=== PATIENT | female | born 1935 | race African-American/Black ===

== ENCOUNTER 2023-01-25 07:08 | Inpatient (IN) | payer MEDICARE, OTHER ==
[~2023-01-25] VITALS: Ht 152.4 cm; Wt 70.3 kg
[2023-01-25 07:58] LABS: CALCIUM, SERUM 9.3 mg/dL (8.5-10.1); CARBON DIOXIDE 26 mmol/L (21-32); CHLORIDE 103 mmol/L (98-107); CREATININE 1.8 mg/dL (0.6-1.3); GLUCOSE 103 mg/dL (74-106); POTASSIUM 3.4 mmol/L (3.5-5.1); SODIUM SERUM 140 mmol/L (136-145); UREA NITROGEN, BLOOD 29 mg/dL (7-18)
[2023-01-25 08:08] LABS: LACTIC ACID 1.4 mmol/L (0.4-2.0)
[2023-01-25 08:09] LABS: BASOPHILS % (AUTO) 0.2 % (0.0-2.0); EOSINOPHILS # (AUTO) 0.1 K/uL (0.0-0.7); EOSINOPHILS % (AUTO) 0.8 % (0.0-6.0); HEMATOCRIT 34 % (33-45); HEMOGLOBIN 10.8 g/dL (11.5-14.8); LYMPHOCYTES # (AUTO) 1.2 K/uL (0.8-4.8); LYMPHOCYTES % (AUTO) 15.7 % (20.0-44.0); MEAN CORPUSCULAR HEMOGLOBIN 29 PG (26.0-33.0); MEAN CORPUSCULAR HGB CONC 32 g/dl (31.0-36.0); MEAN CORPUSCULAR VOLUME 92 fL (82-100); MONOCYTES % (AUTO) 13.2 % (2.0-12.0); NEUTROPHILS # (AUTO) 5.4 K/uL (1.8-8.9); NEUTROPHILS % (AUTO) 70.1 % (43.0-81.0); PLATELET COUNT (AUTO) 193 K/uL (150-450); RED BLOOD CELL COUNT(AUTO) 3.71 MIL/uL (4.0-5.2); RED CELL DISTRIBUTION WIDTH 15.4 % (11.5-15.0); WHITE BLOOD COUNT (AUTO) 7.7 K/uL (4.3-11.0)
[2023-01-25 08:11] LABS: ALANINE AMINOTRANSFERASE 16 U/L (12-78); ALBUMIN 3.2 g/dL (3.4-5.0); ALKALINE PHOSPHATASE 80 U/L (46-116); ASPARTATE AMINOTRANSFERASE 20 U/L (15-37); BILIRUBIN,DIRECT 0.1 mg/dL (0.0-0.2); BILIRUBIN,TOTAL 0.5 mg/dL (0.2-1.0); NT-PRO BNP 1843 pg/mL (0-125); TOTAL PROTEIN, SERUM 7.6 g/dL (6.4-8.2)
[2023-01-25 08:11] LABS: APPEARANCE,URINE CLEAR (CLEAR); BILIRUBIN,URINE NEGATIVE (NEGATIVE); BLOOD, URINE TRACE-INTA Ery/uL (NEGATIVE); COLOR,URINE YELLOW (YELLOW); KETONES,URINE TRACE mg/dL (NEGATIVE); LEUKOCYTE ESTERASE ,URINE NEGATIVE (NEGATIVE); NITRITE, URINE NEGATIVE (NEGATIVE); PROTEIN,URINE 2+ mg/dl (NEGATIVE); UGLUCOSE NEGATIVE (NEGATIVE); UROBILINOGEN,URINE 0.2 EU/dL (0.2)
[2023-01-25 08:24] LABS: RBC,URINE 0-2 /HPF (0-2)
[2023-01-25 08:25] LABS: ADD URINE CULTURE YES; BACTERIA,URINE Moderate /HPF (None Seen); COARSE GRANULAR CASTS,URINE Few /LPF (None Seen); SQUAMOUS EPITHELIAL CELL,UR Moderate /HPF (None Seen); WBC,URINE NONE SEEN /HPF (0-3)
[2023-01-25] MEDS ORDERED: FUROSEMIDE 40 MG/4 ML VIAL IV ONE (08:30)
[2023-01-25] MEDS ORDERED: FUROSEMIDE 40 MG/4 ML VIAL ONE (08:50)
[2023-01-25] MEDS ORDERED: ACET-2605 PO (09:20)
[2023-01-25] MEDS ORDERED: METO25TA4 PO (09:20)
[2023-01-25] MEDS ORDERED: ASCO-352 PO (09:20)
[2023-01-25] MEDS ORDERED: AMLO2.5T4 PO (09:20)
[2023-01-25] MEDS ORDERED: MELA3TAB41 PO (09:20)
[2023-01-25] MEDS ORDERED: ACET-868 PO ×2 (09:20)
[2023-01-25] MEDS ORDERED: PETR113O TP (09:20)
[2023-01-25] MEDS ORDERED: RIVA3CAP17 PO (09:20)
[2023-01-25] MEDS ORDERED: ZINC56.713 TP (09:20)
[2023-01-25] MEDS ORDERED: MULT-447 PO (09:20)
[2023-01-25] MEDS ORDERED: POTA10TA11 PO (09:20)
[2023-01-25] MEDS ORDERED: FURO40TA5 PO (09:20)
[2023-01-25] MEDS ORDERED: CLOP75TA15 PO (09:20)
[2023-01-25] MEDS ORDERED: METF-440 PO (09:20)
[2023-01-25] MEDS ORDERED: MEMA10TA56 PO (09:20)
[2023-01-25] MEDS ORDERED: ATOR40TA PO (09:20)
[2023-01-25] MEDS ORDERED: FOLI0.4T6 PO (09:20)
[2023-01-25] MEDS ORDERED: Z GUARD REMEDY 4 OZ OINT TP PRN (14:30)
[2023-01-25] MEDS ORDERED: ONDANSETRON HCL/PF 4 MG/2 ML VIAL IVP PRN (14:30)
[2023-01-25] MEDS ORDERED: POTASSIUM CHLORIDE 20 MEQ TAB.PRT.SR PO ONE (14:30)
[2023-01-25] MEDS ORDERED: ACETAMINOPHEN 325 MG TABLET PO PRN (14:30)
[2023-01-25] MEDS ORDERED: DEXTROSE 50%-WATER 50 ML DISP.SYRIN IV PRN (14:30)
[2023-01-25] MEDS ORDERED: IPRATROPIUM NEB FS 0.5 MG/2.5 ML AMPUL.NEB NEB PRN (15:30)
[2023-01-25] MEDS ORDERED: ALBUTEROL FS 2.5 MG/3 ML VIAL.NEB NEB PRN (15:30)
[2023-01-25 16:00] VITALS: BP 136/95; TEMP 98.6; O2SAT 100
[2023-01-25] MEDS ORDERED: VANCOMYCIN 1 GM in IV D5W 250 ML IV SCH (17:00)
[2023-01-25] MEDS: RIVASTIGMINE TARTRATE 1.5 MG CAPSULE PO SCH (17:44)
[2023-01-25] MEDS: BLOOD SUGAR DIAGNOSTIC 1 EACH STRIP IN SCH ×2 (17:54→21:14)
[2023-01-25] MEDS: INSULIN REGULAR, HUMAN 100 UNIT/ML 3 ML VIAL SQ PRN (17:54)
[2023-01-25] MEDS: CEFEPIME 1 GM in IV D5W 50 ML IV SCH (19:37)
[2023-01-25 20:00] VITALS: BP 132/59; TEMP 99.2; O2SAT 100
[2023-01-25] MEDS: HEPARIN SODIUM, PORCINE 5000 UNITS/1 ML VIAL SQ SCH (21:13)
[2023-01-25] MEDS: ATORVASTATIN 40 MG TABLET PO SCH (21:14)
[2023-01-26] VITALS (8 sets, daily range): BP systolic 110–138; BP diastolic 58–77; TEMP 97.7–98.4; O2SAT 93–100
[2023-01-26] MEDS: CEFEPIME 1 GM in IV D5W 50 ML IV SCH ×2 (05:15→17:46)
[2023-01-26] MEDS: BLOOD SUGAR DIAGNOSTIC 1 EACH STRIP IN SCH ×4 (05:42→22:22)
[2023-01-26 06:22] LABS: BASOPHILS % (AUTO) 0.3 % (0.0-2.0); EOSINOPHILS # (AUTO) 0.1 K/uL (0.0-0.7); EOSINOPHILS % (AUTO) 1.3 % (0.0-6.0); HEMATOCRIT 33 % (33-45); HEMOGLOBIN 10.4 g/dL (11.5-14.8); LYMPHOCYTES # (AUTO) 1.2 K/uL (0.8-4.8); LYMPHOCYTES % (AUTO) 14.8 % (20.0-44.0); MEAN CORPUSCULAR HEMOGLOBIN 29 PG (26.0-33.0); MEAN CORPUSCULAR HGB CONC 32 g/dl (31.0-36.0); MEAN CORPUSCULAR VOLUME 93 fL (82-100); MONOCYTES # (AUTO) 0.9 K/uL (0.1-1.30); MONOCYTES % (AUTO) 11.4 % (2.0-12.0); NEUTROPHILS # (AUTO) 5.7 K/uL (1.8-8.9); NEUTROPHILS % (AUTO) 72.2 % (43.0-81.0); PLATELET COUNT (AUTO) 182 K/uL (150-450); RED BLOOD CELL COUNT(AUTO) 3.54 MIL/uL (4.0-5.2); RED CELL DISTRIBUTION WIDTH 15.1 % (11.5-15.0); WHITE BLOOD COUNT (AUTO) 7.8 K/uL (4.3-11.0)
[2023-01-26 06:46] LABS: CARBON DIOXIDE 27 mmol/L (21-32); CHLORIDE 106 mmol/L (98-107); CREATININE 1.7 mg/dL (0.6-1.3); GLUCOSE 111 mg/dL (74-106); IRON, SERUM 34 ug/dl (50-175); MAGNESIUM 1.5 mg/dL (1.8-2.4); PHOSPHORUS 3.1 mg/dL (2.5-4.9); POTASSIUM 3.2 mmol/L (3.5-5.1); SODIUM SERUM 141 mmol/L (136-145); TOTAL IRON BINDING CAPACITY 206 ug/dl (250-450); UREA NITROGEN, BLOOD 29 mg/dL (7-18)
[2023-01-26] MEDS: PANTOPRAZOLE 40 MG TABLET.DR PO SCH (07:21)
[2023-01-26] MEDS: MEMANTINE HCL 5 MG TABLET PO SCH (08:33)
[2023-01-26] MEDS: AMLODIPINE BESYLATE 2.5 MG TABLET PO SCH (08:33)
[2023-01-26] MEDS: METOPROLOL SUCCINATE 25 MG TAB.SR.24H PO SCH (08:33)
[2023-01-26] MEDS: FOLIC ACID 1 MG TABLET PO SCH (08:34)
[2023-01-26] MEDS: CLOPIDOGREL BISULFATE 75 MG TABLET PO SCH (08:34)
[2023-01-26] MEDS: ASCORBIC ACID 500 MG TABLET PO SCH (08:34)
[2023-01-26] MEDS: MULTIVIT W/MINERALS 1 TAB TABLET PO SCH (08:34)
[2023-01-26] MEDS: RIVASTIGMINE TARTRATE 1.5 MG CAPSULE PO SCH ×2 (08:34→17:46)
[2023-01-26] MEDS: HEPARIN SODIUM, PORCINE 5000 UNITS/1 ML VIAL SQ SCH ×2 (08:39→21:19)
[2023-01-26 08:43] LABS: CHOLESTEROL 129 mg/dL (<200); FERRITIN 100 ng/mL (8-388); HDL CHOLESTEROL 56 mg/dL (40-60); LDL 62 mg/dL (0-99); THYROID STIMULATING HORMONE 0.821 uIU/mL (0.358-3.74); TRIGLYCERIDES 58 mg/dL (30-150)
[2023-01-26] MEDS: POTASSIUM CHLORIDE 20 MEQ TAB.PRT.SR PO SCH ×2 (09:23→10:33)
[2023-01-26] MEDS: Magnesium 1GM/D5W 100ML PREMIX 100 ML IV SCH ×2 (09:24→10:34)
[2023-01-26] MEDS: ZINC OXIDE 56.7 GM TUBE TP SCH (09:48)
[2023-01-26] MEDS: INSULIN REGULAR, HUMAN 100 UNIT/ML 3 ML VIAL SQ PRN ×3 (11:21→22:23)
[2023-01-26] MEDS: ALBUTEROL HALF STRENGTH 1.25 MG/3 ML VIAL.NEB NEB SCH (20:17)
[2023-01-26] MEDS: IPRATROPIUM NEB FS 0.5 MG/2.5 ML AMPUL.NEB NEB SCH (20:17)
[2023-01-26] MEDS: ATORVASTATIN 40 MG TABLET PO SCH (21:11)
[2023-01-27] VITALS (14 sets, daily range): BP systolic 133–152; BP diastolic 69–80; TEMP 98.1–99.9; O2SAT 96–100
[2023-01-27] MEDS: ALBUTEROL HALF STRENGTH 1.25 MG/3 ML VIAL.NEB NEB SCH ×4 (02:16→19:29)
[2023-01-27] MEDS: IPRATROPIUM NEB FS 0.5 MG/2.5 ML AMPUL.NEB NEB SCH ×4 (02:16→19:30)
[2023-01-27 06:37] LABS: BASOPHILS % (AUTO) 0.3 % (0.0-2.0); EOSINOPHILS # (AUTO) 0.2 K/uL (0.0-0.7); EOSINOPHILS % (AUTO) 1.8 % (0.0-6.0); HEMATOCRIT 32 % (33-45); HEMOGLOBIN 10.3 g/dL (11.5-14.8); LYMPHOCYTES # (AUTO) 1.2 K/uL (0.8-4.8); LYMPHOCYTES % (AUTO) 13.3 % (20.0-44.0); MEAN CORPUSCULAR HEMOGLOBIN 30 PG (26.0-33.0); MEAN CORPUSCULAR HGB CONC 33 g/dl (31.0-36.0); MEAN CORPUSCULAR VOLUME 91 fL (82-100); MONOCYTES % (AUTO) 11.6 % (2.0-12.0); NEUTROPHILS # (AUTO) 6.5 K/uL (1.8-8.9); PLATELET COUNT (AUTO) 207 K/uL (150-450); RED BLOOD CELL COUNT(AUTO) 3.44 MIL/uL (4.0-5.2); RED CELL DISTRIBUTION WIDTH 15.2 % (11.5-15.0); WHITE BLOOD COUNT (AUTO) 8.9 K/uL (4.3-11.0)
[2023-01-27] MEDS: CEFEPIME 1 GM in IV D5W 50 ML IV SCH ×2 (06:47→17:42)
[2023-01-27 07:07] LABS: CALCIUM, SERUM 9.1 mg/dL (8.5-10.1); CARBON DIOXIDE 28 mmol/L (21-32); CHLORIDE 104 mmol/L (98-107); CREATININE 1.6 mg/dL (0.6-1.3); GLUCOSE 119 mg/dL (74-106); MAGNESIUM 2.1 mg/dL (1.8-2.4); PHOSPHORUS 2.3 mg/dL (2.5-4.9); POTASSIUM 3.6 mmol/L (3.5-5.1); SODIUM SERUM 140 mmol/L (136-145); UREA NITROGEN, BLOOD 24 mg/dL (7-18)
[2023-01-27] MEDS: INSULIN REGULAR, HUMAN 100 UNIT/ML 3 ML VIAL SQ PRN (07:12)
[2023-01-27] MEDS: BLOOD SUGAR DIAGNOSTIC 1 EACH STRIP IN SCH ×4 (07:12→21:25)
[2023-01-27] MEDS: PANTOPRAZOLE 40 MG TABLET.DR PO SCH ×2 (07:30→08:30)
[2023-01-27] MEDS: NEUTRA PHOS 1 POWD.PACKET PO SCH ×3 (08:30→17:23)
[2023-01-27] MEDS: FOLIC ACID 1 MG TABLET PO SCH ×2 (08:32→09:00)
[2023-01-27] MEDS: RIVASTIGMINE TARTRATE 1.5 MG CAPSULE PO SCH ×3 (08:32→17:23)
[2023-01-27] MEDS: CLOPIDOGREL BISULFATE 75 MG TABLET PO SCH ×2 (08:32→09:00)
[2023-01-27] MEDS: MULTIVIT W/MINERALS 1 TAB TABLET PO SCH ×2 (08:32→09:00)
[2023-01-27] MEDS: ASCORBIC ACID 500 MG TABLET PO SCH ×2 (08:32→09:00)
[2023-01-27] MEDS: METOPROLOL SUCCINATE 25 MG TAB.SR.24H PO SCH ×2 (08:32→09:00)
[2023-01-27] MEDS: MEMANTINE HCL 5 MG TABLET PO SCH ×2 (08:32→09:00)
[2023-01-27] MEDS: AMLODIPINE BESYLATE 2.5 MG TABLET PO SCH ×2 (08:33→09:00)
[2023-01-27] MEDS: HEPARIN SODIUM, PORCINE 5000 UNITS/1 ML VIAL SQ SCH ×2 (08:44→21:08)
[2023-01-27] MEDS: ZINC OXIDE 56.7 GM TUBE TP SCH (09:00)
[2023-01-27 10:18] LABS: ABG BASE EXCESS 0.4 mmol/L; ABG OXYGEN SATURATION 83.1 % (92.0-98.5); ABG PCO2 40.6 mmHg (35.0-45.0); ABG PH 7.408 (7.350-7.450); ABG PO2 47.1 mmHg (75.0-100.0); ABG TOTAL HEMOGLOBIN 11.6 G/dL (12.0-16.0); COHb 0.1 % (0.5-1.5); MetHb 0.3 % (0.0-1.5); O2Hb 82.8 % (94.0-97.0); SITE, ABG Right Radial; VENT MODE, BG ROOM AIR
[2023-01-27] MEDS ORDERED: VANCOMYCIN 1 GM in IV D5W 250ml IV SCH (12:00)
[2023-01-27] MEDS ORDERED: SILDENAFIL CITRATE 25 MG TABLET PO SCH (13:00)
[2023-01-27] MEDS: SILDENAFIL CITRATE 20 MG TABLET PO SCH ×2 (13:47→17:23)
[2023-01-27] MEDS: ATORVASTATIN 40 MG TABLET PO SCH (21:12)
[2023-01-28] VITALS (11 sets, daily range): BP systolic 126–154; BP diastolic 74–85; TEMP 97.7–99; O2SAT 94–100
[2023-01-28] MEDS: ALBUTEROL HALF STRENGTH 1.25 MG/3 ML VIAL.NEB NEB SCH ×3 (01:17→13:42)
[2023-01-28] MEDS: IPRATROPIUM NEB FS 0.5 MG/2.5 ML AMPUL.NEB NEB SCH ×3 (01:17→13:42)
[2023-01-28] MEDS: CEFEPIME 1 GM in IV D5W 50 ML IV SCH (05:24)
[2023-01-28] MEDS: BLOOD SUGAR DIAGNOSTIC 1 EACH STRIP IN SCH ×2 (05:43→12:05)
[2023-01-28 06:25] LABS: CALCIUM, SERUM 9.3 mg/dL (8.5-10.1); CARBON DIOXIDE 30 mmol/L (21-32); CHLORIDE 104 mmol/L (98-107); CREATININE 1.4 mg/dL (0.6-1.3); GLUCOSE 111 mg/dL (74-106); POTASSIUM 3.5 mmol/L (3.5-5.1); SODIUM SERUM 140 mmol/L (136-145); UREA NITROGEN, BLOOD 19 mg/dL (7-18)
[2023-01-28] MEDS: METOPROLOL SUCCINATE 25 MG TAB.SR.24H PO SCH (08:57)
[2023-01-28] MEDS: SILDENAFIL CITRATE 20 MG TABLET PO SCH ×2 (08:57→12:06)
[2023-01-28] MEDS: RIVASTIGMINE TARTRATE 1.5 MG CAPSULE PO SCH (08:57)
[2023-01-28] MEDS: PANTOPRAZOLE 40 MG TABLET.DR PO SCH (08:58)
[2023-01-28] MEDS: FOLIC ACID 1 MG TABLET PO SCH (08:58)
[2023-01-28] MEDS: AMLODIPINE BESYLATE 2.5 MG TABLET PO SCH (08:58)
[2023-01-28] MEDS: MEMANTINE HCL 5 MG TABLET PO SCH (08:58)
[2023-01-28] MEDS: ASCORBIC ACID 500 MG TABLET PO SCH (08:58)
[2023-01-28] MEDS: MULTIVIT W/MINERALS 1 TAB TABLET PO SCH (08:58)
[2023-01-28] MEDS: CLOPIDOGREL BISULFATE 75 MG TABLET PO SCH (08:58)
[2023-01-28] MEDS: HEPARIN SODIUM, PORCINE 5000 UNITS/1 ML VIAL SQ SCH (09:02)
[2023-01-28] MEDS: ZINC OXIDE 56.7 GM TUBE TP SCH (09:03)
[2023-01-28] MEDS ORDERED: VANCOMYCIN 1 GM in IV D5W 250ml IV SCH (15:00)
== END 2023-01-28 14:30 | DRG 314 ==
LOC: ER 07:13 → TELE 13:57
PROVIDERS: ADMIT Nurse Practitioner Family; ATTEND Nurse Practitioner Family
PROC: 05HC33Z Insertion of Infusion Device into Left Basilic Vein, Percutaneous Approach (ICD-10-PCS; principal; 2023-01-28)
DX: I27.20 Pulmonary hypertension, unspecified (principal); J96.21 Acute and chronic respiratory failure with hypoxia; I13.0 Hypertensive heart and chronic kidney disease with heart failure and stage 1 through stage 4 chronic kidney disease, or unspecified chronic kidney disease; E44.1 Mild protein-calorie malnutrition; I50.32 Chronic diastolic (congestive) heart failure; J98.11 Atelectasis; N17.9 Acute kidney failure, unspecified; N18.30 Chronic kidney disease, stage 3 unspecified; H70.93 Unspecified mastoiditis, bilateral; E78.5 Hyperlipidemia, unspecified; D64.9 Anemia, unspecified; E87.6 Hypokalemia; J44.9 Chronic obstructive pulmonary disease, unspecified; Z79.84 Long term (current) use of oral hypoglycemic drugs; Z79.899 Other long term (current) drug therapy; Z79.02 Long term (current) use of antithrombotics/antiplatelets; E88.09 Other disorders of plasma-protein metabolism, not elsewhere classified; E11.22 Type 2 diabetes mellitus with diabetic chronic kidney disease; E83.39 Other disorders of phosphorus metabolism; Z87.01 Personal history of pneumonia (recurrent); F03.90 Unspecified dementia, unspecified severity, without behavioral disturbance, psychotic disturbance, mood disturbance, and anxiety
CPT/HCPCS: 36415; 36600; 70450-TC; 71045-TC; 80048-TC; 80061-TC; 80076-TC; 80202-TC; 81001; 82728-TC; 82803-TC; 82962-TC; 83540-TC; 83605-TC; 83735-TC; 83880; 84100-TC; 84443-TC; 84484-TC; 85025-TC; 87040-TC; 87086-TC; 93307-TC; 93970-TC; 94799-TC; 97112-TC; 97116-TC; 97530-TC; A4223; C9803; G0378; J0692; J1644; J1815; J1940; J3370; J3475; J7030; J7060

== ENCOUNTER 2023-04-11 08:36 | Inpatient (IN) | payer MEDICARE, OTHER ==
[~2023-04-11] VITALS: Ht 152.4 cm; Wt 69.4 kg
[~2023-04-11 08:36] MED LIST: ACET-2605 PO; ACET-868 PO; AMLO2.5T4 PO; ASCO-352 PO; ATOR40TA PO; CLOP75TA15 PO; FOLI0.4T6 PO; FURO40TA5 PO; MELA3TAB41 PO; MEMA10TA56 PO; METF-440 PO; METO25TA4 PO; MULT-447 PO; PETR113O TP; POTA10TA11 PO; RIVA3CAP17 PO; ZINC56.713 TP
[2023-04-11] MEDS ORDERED: IV NS 0.9% 250 ML IV ONE (08:51)
[2023-04-11] MEDS ORDERED: IOHEXOL-350 100 ML VIAL IV ONE (08:51)
[2023-04-11 08:53] LABS: BASOPHILS % (AUTO) 0.9 % (0.0-2.0); EOSINOPHILS # (AUTO) 0.1 K/uL (0.0-0.7); EOSINOPHILS % (AUTO) 2.6 % (0.0-6.0); HEMATOCRIT 37 % (33-45); HEMOGLOBIN 11.6 g/dL (11.5-14.8); LYMPHOCYTES # (AUTO) 1.3 K/uL (0.8-4.8); LYMPHOCYTES % (AUTO) 25.1 % (20.0-44.0); MEAN CORPUSCULAR HEMOGLOBIN 30 PG (26.0-33.0); MEAN CORPUSCULAR HGB CONC 32 g/dl (31.0-36.0); MEAN CORPUSCULAR VOLUME 94 fL (82-100); MONOCYTES # (AUTO) 0.5 K/uL (0.1-1.30); MONOCYTES % (AUTO) 9.1 % (2.0-12.0); NEUTROPHILS # (AUTO) 3.2 K/uL (1.8-8.9); NEUTROPHILS % (AUTO) 62.3 % (43.0-81.0); PLATELET COUNT (AUTO) 193 K/uL (150-450); RED BLOOD CELL COUNT(AUTO) 3.86 MIL/uL (4.0-5.2); RED CELL DISTRIBUTION WIDTH 14.6 % (11.5-15.0); WHITE BLOOD COUNT (AUTO) 5.1 K/uL (4.3-11.0)
[2023-04-11 09:05] LABS: CHOLESTEROL 189 mg/dL (<200); HDL CHOLESTEROL 82 mg/dL (40-60); LDL 81 mg/dL (0-99); TRIGLYCERIDES 59 mg/dL (30-150)
[2023-04-11 09:06] LABS: ALANINE AMINOTRANSFERASE 14 U/L (12-78); ALBUMIN 3.6 g/dL (3.4-5.0); ALKALINE PHOSPHATASE 80 U/L (46-116); ASPARTATE AMINOTRANSFERASE 20 U/L (15-37); BILIRUBIN,DIRECT 0.1 mg/dL (0.0-0.2); BILIRUBIN,TOTAL 0.5 mg/dL (0.2-1.0); CALCIUM, SERUM 9.4 mg/dL (8.5-10.1); CARBON DIOXIDE 28 mmol/L (21-32); CHLORIDE 104 mmol/L (98-107); CREATININE 1.4 mg/dL (0.6-1.3); GLUCOSE 98 mg/dL (74-106); POTASSIUM 4.4 mmol/L (3.5-5.1); SODIUM SERUM 139 mmol/L (136-145); TOTAL PROTEIN, SERUM 7.9 g/dL (6.4-8.2); UREA NITROGEN, BLOOD 25 mg/dL (7-18)
[2023-04-11 09:08] LABS: INR 1.01 (0.91-1.10); PROTHROMBIN TIME 10.7 SECS (9.2-11.1)
[2023-04-11 09:25] LABS: LACTIC ACID 1.3 mmol/L (0.4-2.0)
[2023-04-11] MEDS ORDERED: ALBU2.5V38 IH (09:37)
[2023-04-11] MEDS ORDERED: SILD20TA PO (09:37)
[2023-04-11] MEDS ORDERED: PANT40TA2 PO (09:37)
[2023-04-11] MEDS ORDERED: IPRA3AMP22 IH (09:37)
[2023-04-11] MEDS ORDERED: METO-358 PO (09:37)
[2023-04-11] MEDS ORDERED: FURO-145 PO (09:37)
[2023-04-11 10:49] LABS: APPEARANCE,URINE CLEAR (CLEAR); BILIRUBIN,URINE NEGATIVE (NEGATIVE); BLOOD, URINE TRACE-INTA Ery/uL (NEGATIVE); COLOR,URINE YELLOW (YELLOW); KETONES,URINE NEGATIVE (NEGATIVE); LEUKOCYTE ESTERASE ,URINE NEGATIVE (NEGATIVE); NITRITE, URINE NEGATIVE (NEGATIVE); PROTEIN,URINE TRACE mg/dl (NEGATIVE); UGLUCOSE NEGATIVE (NEGATIVE); UROBILINOGEN,URINE 0.2 EU/dL (0.2)
[2023-04-11 11:09] LABS: AMPHETAMINE, URINE NEGATIVE (NEGATIVE); BARBITURATE, URINE NEGATIVE (NEGATIVE); BENZODIAZEPINE, URINE NEGATIVE (NEGATIVE); CANNABINOID, URINE NEGATIVE (NEGATIVE); COCCAINE, URINE NEGATIVE (NEGATIVE); OPIATE, URINE NEGATIVE (NEGATIVE); PHENCYCLIDINE SCREEN,URINE NEGATIVE (NEGATIVE)
[2023-04-11] MEDS ORDERED: hydrALAZINE HCL IV 20 MG VIAL IV ONE (12:00)
[2023-04-11] MEDS ORDERED: ACETAMINOPHEN 325 MG TABLET PO PRN ×2 (12:00)
[2023-04-11] MEDS: ALBUTEROL FS 2.5 MG/3 ML VIAL.NEB IH SCH ×3 (12:00→20:24)
[2023-04-11] MEDS ORDERED: hydrALAZINE HCL IV 20 MG VIAL ONE (12:02)
[2023-04-11 12:18] LABS: ADD URINE CULTURE NO; BACTERIA,URINE None seen /HPF (None Seen); RBC,URINE 0-2 /HPF (0-2); SQUAMOUS EPITHELIAL CELL,UR Rare /HPF (None Seen); WBC,URINE NONE SEEN /HPF (0-3)
[2023-04-11] MEDS ORDERED: ALBUTEROL FS 2.5 MG/0.5 ML VIAL.NEB NEB PRN ×2 (13:00)
[2023-04-11] MEDS ORDERED: IPRATROPIUM NEB FS 0.5 MG/2.5 ML AMPUL.NEB NEB PRN (13:30)
[2023-04-11] MEDS: BLOOD SUGAR DIAGNOSTIC 1 EACH STRIP IN SCH ×3 (13:48→21:15)
[2023-04-11 14:25] VITALS: O2SAT 98
[2023-04-11 14:37] VITALS: O2SAT 99
[2023-04-11] MEDS ORDERED: diphenhydrAMINE HCL 50 MG/ML VIAL IV ONE (15:00)
[2023-04-11] MEDS ORDERED: ASPIRIN 300 MG/SUPP.RECT RC ONE (15:00)
[2023-04-11] MEDS: RIVASTIGMINE TARTRATE 1.5 MG CAPSULE PO SCH (16:39)
[2023-04-11 20:00] VITALS: BP 132/101; TEMP 99.4; O2SAT 97
[2023-04-11 20:14] VITALS: O2SAT 94
[2023-04-11 20:24] VITALS: O2SAT 98
[2023-04-11 21:10] LABS: THYROID STIMULATING HORMONE 1.07 uIU/mL (0.358-3.74)
[2023-04-11] MEDS: ATORVASTATIN 40 MG TABLET PO SCH (22:00)
[2023-04-12] VITALS (11 sets, daily range): BP systolic 117–153; BP diastolic 73–126; TEMP 97.9–98.8; O2SAT 96–99
[2023-04-12] MEDS: hydrALAZINE HCL IV 20 MG VIAL IV PRN (00:27)
[2023-04-12] MEDS: ALBUTEROL FS 2.5 MG/3 ML VIAL.NEB IH SCH ×4 (02:01→19:18)
[2023-04-12 07:50] LABS: BASOPHILS % (AUTO) 0.3 % (0.0-2.0); EOSINOPHILS % (AUTO) 0.5 % (0.0-6.0); HEMATOCRIT 37 % (33-45); HEMOGLOBIN 11.8 g/dL (11.5-14.8); LYMPHOCYTES # (AUTO) 0.9 K/uL (0.8-4.8); LYMPHOCYTES % (AUTO) 16.2 % (20.0-44.0); MEAN CORPUSCULAR HEMOGLOBIN 30 PG (26.0-33.0); MEAN CORPUSCULAR HGB CONC 32 g/dl (31.0-36.0); MEAN CORPUSCULAR VOLUME 93 fL (82-100); MONOCYTES # (AUTO) 0.5 K/uL (0.1-1.30); MONOCYTES % (AUTO) 8.6 % (2.0-12.0); NEUTROPHILS % (AUTO) 74.4 % (43.0-81.0); PLATELET COUNT (AUTO) 214 K/uL (150-450); RED BLOOD CELL COUNT(AUTO) 3.99 MIL/uL (4.0-5.2); RED CELL DISTRIBUTION WIDTH 14.7 % (11.5-15.0); WHITE BLOOD COUNT (AUTO) 5.4 K/uL (4.3-11.0)
[2023-04-12 08:05] LABS: CALCIUM, SERUM 9.6 mg/dL (8.5-10.1); CREATININE 1.3 mg/dL (0.6-1.3); POTASSIUM 4.1 mmol/L (3.5-5.1)
[2023-04-12 08:14] LABS: INR 1.03 (0.91-1.10); PARTIAL THROMBOPLASTIN TIME 29.3 SEC (24.3-34.3); PROTHROMBIN TIME 10.9 SECS (9.2-11.1)
[2023-04-12] MEDS: BLOOD SUGAR DIAGNOSTIC 1 EACH STRIP IN SCH ×4 (08:17→22:01)
[2023-04-12] MEDS: PANTOPRAZOLE 40 MG TABLET.DR PO SCH (09:00)
[2023-04-12] MEDS: RIVASTIGMINE TARTRATE 1.5 MG CAPSULE PO SCH ×2 (09:00→16:30)
[2023-04-12] MEDS: ASPIRIN 81 MG TAB.CHEW PO SCH (09:00)
[2023-04-12] MEDS: MULTIVIT W/MINERALS 1 TAB TABLET PO SCH (09:00)
[2023-04-12] MEDS: FOLIC ACID 1 MG TABLET PO SCH (09:00)
[2023-04-12] MEDS: CLOPIDOGREL BISULFATE 75 MG TABLET PO SCH (09:00)
[2023-04-12] MEDS: MEMANTINE HCL 5 MG TABLET PO SCH (09:00)
[2023-04-12] MEDS: ASCORBIC ACID 500 MG TABLET PO SCH (09:00)
[2023-04-12] MEDS ORDERED: IV D5/ 0.9% NACL 1,000 ML IV ONE (18:00)
[2023-04-12] MEDS: ATORVASTATIN 40 MG TABLET PO SCH (21:33)
[2023-04-13] VITALS (15 sets, daily range): BP systolic 155–188; BP diastolic 59–107; TEMP 97.5–99; O2SAT 92–99
[2023-04-13] MEDS: ALBUTEROL FS 2.5 MG/3 ML VIAL.NEB IH SCH ×4 (01:30→20:33)
[2023-04-13] MEDS: BLOOD SUGAR DIAGNOSTIC 1 EACH STRIP IN SCH ×4 (06:34→21:48)
[2023-04-13 08:09] LABS: FOLIC ACID > 20.0 ng/mL (>3.0)
[2023-04-13 08:11] LABS: BASOPHILS % (AUTO) 0.4 % (0.0-2.0); EOSINOPHILS # (AUTO) 0.2 K/uL (0.0-0.7); EOSINOPHILS % (AUTO) 3.8 % (0.0-6.0); HEMATOCRIT 34 % (33-45); HEMOGLOBIN 11.1 g/dL (11.5-14.8); LYMPHOCYTES # (AUTO) 0.9 K/uL (0.8-4.8); LYMPHOCYTES % (AUTO) 18.4 % (20.0-44.0); MEAN CORPUSCULAR HEMOGLOBIN 30 PG (26.0-33.0); MEAN CORPUSCULAR HGB CONC 32 g/dl (31.0-36.0); MEAN CORPUSCULAR VOLUME 93 fL (82-100); MONOCYTES # (AUTO) 0.6 K/uL (0.1-1.30); MONOCYTES % (AUTO) 11.7 % (2.0-12.0); NEUTROPHILS # (AUTO) 3.2 K/uL (1.8-8.9); NEUTROPHILS % (AUTO) 65.7 % (43.0-81.0); PLATELET COUNT (AUTO) 198 K/uL (150-450); RED CELL DISTRIBUTION WIDTH 14.6 % (11.5-15.0); WHITE BLOOD COUNT (AUTO) 4.9 K/uL (4.3-11.0)
[2023-04-13] MEDS: CLOPIDOGREL BISULFATE 75 MG TABLET PO SCH (08:17)
[2023-04-13] MEDS: RIVASTIGMINE TARTRATE 1.5 MG CAPSULE PO SCH ×2 (08:17→17:41)
[2023-04-13] MEDS: PANTOPRAZOLE 40 MG TABLET.DR PO SCH (08:17)
[2023-04-13] MEDS: ASCORBIC ACID 500 MG TABLET PO SCH (08:17)
[2023-04-13] MEDS: FOLIC ACID 1 MG TABLET PO SCH (08:17)
[2023-04-13] MEDS: ASPIRIN 81 MG TAB.CHEW PO SCH (08:17)
[2023-04-13] MEDS: MEMANTINE HCL 5 MG TABLET PO SCH (08:17)
[2023-04-13] MEDS: MULTIVIT W/MINERALS 1 TAB TABLET PO SCH (08:17)
[2023-04-13 08:42] LABS: CALCIUM, SERUM 9.4 mg/dL (8.5-10.1); CARBON DIOXIDE 25 mmol/L (21-32); CHLORIDE 106 mmol/L (98-107); CREATININE 1.3 mg/dL (0.6-1.3); GLUCOSE 117 mg/dL (74-106); POTASSIUM 3.6 mmol/L (3.5-5.1); SODIUM SERUM 141 mmol/L (136-145); UREA NITROGEN, BLOOD 18 mg/dL (7-18)
[2023-04-13] MEDS: IV D5/ 0.9% NACL 1,000 ML IV PRN (15:26)
[2023-04-13] MEDS ORDERED: VANCOMYCIN 1.5 GM in IV D5W 500ml IV ONE (18:00)
[2023-04-13] MEDS: ATORVASTATIN 40 MG TABLET PO SCH (21:43)
[2023-04-14] VITALS (12 sets, daily range): BP systolic 143–164; BP diastolic 67–111; TEMP 97.7–98.8; O2SAT 92–99
[2023-04-14] MEDS: ALBUTEROL FS 2.5 MG/3 ML VIAL.NEB IH SCH ×4 (02:15→20:24)
[2023-04-14] MEDS: IV D5/ 0.9% NACL 1,000 ML IV PRN ×2 (05:51→21:39)
[2023-04-14] MEDS: BLOOD SUGAR DIAGNOSTIC 1 EACH STRIP IN SCH ×4 (06:53→22:03)
[2023-04-14 08:06] LABS: BASOPHILS % (AUTO) 0.6 % (0.0-2.0); EOSINOPHILS # (AUTO) 0.3 K/uL (0.0-0.7); EOSINOPHILS % (AUTO) 4.9 % (0.0-6.0); HEMATOCRIT 37 % (33-45); HEMOGLOBIN 11.7 g/dL (11.5-14.8); LYMPHOCYTES # (AUTO) 1.1 K/uL (0.8-4.8); LYMPHOCYTES % (AUTO) 17.8 % (20.0-44.0); MEAN CORPUSCULAR HEMOGLOBIN 30 PG (26.0-33.0); MEAN CORPUSCULAR HGB CONC 31 g/dl (31.0-36.0); MEAN CORPUSCULAR VOLUME 96 fL (82-100); MONOCYTES # (AUTO) 0.6 K/uL (0.1-1.30); NEUTROPHILS # (AUTO) 4.1 K/uL (1.8-8.9); NEUTROPHILS % (AUTO) 66.7 % (43.0-81.0); PLATELET COUNT (AUTO) 176 K/uL (150-450); RED CELL DISTRIBUTION WIDTH 14.9 % (11.5-15.0); WHITE BLOOD COUNT (AUTO) 6.2 K/uL (4.3-11.0)
[2023-04-14 08:12] LABS: CARBON DIOXIDE 23 mmol/L (21-32); CHLORIDE 104 mmol/L (98-107); CREATININE 1.1 mg/dL (0.6-1.3); GLUCOSE 102 mg/dL (74-106); POTASSIUM 3.8 mmol/L (3.5-5.1); SODIUM SERUM 137 mmol/L (136-145); UREA NITROGEN, BLOOD 12 mg/dL (7-18)
[2023-04-14] MEDS: MEMANTINE HCL 5 MG TABLET PO SCH (08:39)
[2023-04-14] MEDS: RIVASTIGMINE TARTRATE 1.5 MG CAPSULE PO SCH ×2 (08:39→16:21)
[2023-04-14] MEDS: PANTOPRAZOLE 40 MG TABLET.DR PO SCH (08:39)
[2023-04-14] MEDS: CLOPIDOGREL BISULFATE 75 MG TABLET PO SCH (08:39)
[2023-04-14] MEDS: FOLIC ACID 1 MG TABLET PO SCH (08:39)
[2023-04-14] MEDS: ASPIRIN 81 MG TAB.CHEW PO SCH (08:39)
[2023-04-14] MEDS: ASCORBIC ACID 500 MG TABLET PO SCH (08:39)
[2023-04-14] MEDS: MULTIVIT W/MINERALS 1 TAB TABLET PO SCH (08:39)
[2023-04-14] MEDS: hydrALAZINE HCL IV 20 MG VIAL IV PRN (08:42)
[2023-04-14] MEDS: VANCOMYCIN HCL 0.75 GM in IV D5W 250 ML IV SCH (17:07)
[2023-04-14 19:05] LABS: ANISOCYTOSIS 1+; EOSINOPHILS % (MANUAL) 3 % (0-4); LYMPHOCYTES % (MANUAL) 19 % (16-48); MONOCYTES % (MANUAL) 9 % (0-11.0); NEUTROPHILS % (MANUAL) 68 (42-76); OVALOCYTES 1+; PLATELET ESTIMATE ADEQUATE; REACTIVE LYMPHOCYTES 1 % (0-0)
[2023-04-14 19:06] LABS: TEAR DROP CELLS RARE
[2023-04-14] MEDS: ATORVASTATIN 40 MG TABLET PO SCH (22:03)
[2023-04-15] VITALS (13 sets, daily range): BP systolic 151–175; BP diastolic 71–106; TEMP 98–98.8; O2SAT 95–100
[2023-04-15] MEDS: ALBUTEROL FS 2.5 MG/3 ML VIAL.NEB IH SCH ×4 (02:15→20:23)
[2023-04-15] MEDS: BLOOD SUGAR DIAGNOSTIC 1 EACH STRIP IN SCH ×4 (06:44→22:14)
[2023-04-15 07:29] LABS: BASOPHILS % (AUTO) 0.3 % (0.0-2.0); EOSINOPHILS # (AUTO) 0.2 K/uL (0.0-0.7); EOSINOPHILS % (AUTO) 4.8 % (0.0-6.0); HEMATOCRIT 31 % (33-45); HEMOGLOBIN 9.3 g/dL (11.5-14.8); LYMPHOCYTES # (AUTO) 0.8 K/uL (0.8-4.8); LYMPHOCYTES % (AUTO) 20.3 % (20.0-44.0); MEAN CORPUSCULAR HEMOGLOBIN 30 PG (26.0-33.0); MEAN CORPUSCULAR HGB CONC 30 g/dl (31.0-36.0); MEAN CORPUSCULAR VOLUME 101 fL (82-100); MONOCYTES # (AUTO) 0.4 K/uL (0.1-1.30); MONOCYTES % (AUTO) 11.5 % (2.0-12.0); NEUTROPHILS # (AUTO) 2.4 K/uL (1.8-8.9); NEUTROPHILS % (AUTO) 63.1 % (43.0-81.0); PLATELET COUNT (AUTO) 148 K/uL (150-450); RED BLOOD CELL COUNT(AUTO) 3.05 MIL/uL (4.0-5.2); RED CELL DISTRIBUTION WIDTH 15.3 % (11.5-15.0); WHITE BLOOD COUNT (AUTO) 3.8 K/uL (4.3-11.0)
[2023-04-15] MEDS: FOLIC ACID 1 MG TABLET PO SCH (08:55)
[2023-04-15] MEDS: MEMANTINE HCL 5 MG TABLET PO SCH (08:55)
[2023-04-15] MEDS: ASPIRIN 81 MG TAB.CHEW PO SCH (08:55)
[2023-04-15] MEDS: RIVASTIGMINE TARTRATE 1.5 MG CAPSULE PO SCH ×2 (08:55→16:46)
[2023-04-15] MEDS: ASCORBIC ACID 500 MG TABLET PO SCH (08:55)
[2023-04-15] MEDS: CLOPIDOGREL BISULFATE 75 MG TABLET PO SCH (08:55)
[2023-04-15] MEDS: MULTIVIT W/MINERALS 1 TAB TABLET PO SCH (08:55)
[2023-04-15] MEDS: PANTOPRAZOLE 40 MG TABLET.DR PO SCH (08:55)
[2023-04-15] MEDS: hydrALAZINE HCL IV 20 MG VIAL IV PRN ×2 (08:55→21:08)
[2023-04-15 12:37] LABS: CALCIUM, SERUM 9.1 mg/dL (8.5-10.1); CREATININE 1.2 mg/dL (0.6-1.3); POTASSIUM 3.1 mmol/L (3.5-5.1)
[2023-04-15] MEDS: IV D5/ 0.9% NACL 1,000 ML IV PRN (14:19)
[2023-04-15] MEDS: POTASSIUM CHLORIDE 20 MEQ TAB.PRT.SR PO SCH ×2 (16:19→17:24)
[2023-04-15] MEDS: VANCOMYCIN HCL 0.75 GM in IV D5W 250 ML IV SCH (17:32)
[2023-04-15] MEDS: ATORVASTATIN 40 MG TABLET PO SCH (21:08)
[2023-04-16] VITALS (13 sets, daily range): BP systolic 147–159; BP diastolic 72–91; TEMP 97.5–98.7; O2SAT 94–100
[2023-04-16] MEDS: ALBUTEROL FS 2.5 MG/3 ML VIAL.NEB IH SCH ×4 (01:58→20:10)
[2023-04-16] MEDS: hydrALAZINE HCL IV 20 MG VIAL IV PRN (04:27)
[2023-04-16] MEDS: BLOOD SUGAR DIAGNOSTIC 1 EACH STRIP IN SCH ×4 (06:42→23:02)
[2023-04-16 07:19] LABS: BASOPHILS % (AUTO) 0.4 % (0.0-2.0); EOSINOPHILS # (AUTO) 0.3 K/uL (0.0-0.7); EOSINOPHILS % (AUTO) 4.4 % (0.0-6.0); HEMATOCRIT 35 % (33-45); HEMOGLOBIN 11.3 g/dL (11.5-14.8); LYMPHOCYTES # (AUTO) 1.4 K/uL (0.8-4.8); LYMPHOCYTES % (AUTO) 20.4 % (20.0-44.0); MEAN CORPUSCULAR HEMOGLOBIN 30 PG (26.0-33.0); MEAN CORPUSCULAR HGB CONC 33 g/dl (31.0-36.0); MEAN CORPUSCULAR VOLUME 92 fL (82-100); MONOCYTES # (AUTO) 0.8 K/uL (0.1-1.30); MONOCYTES % (AUTO) 10.9 % (2.0-12.0); NEUTROPHILS # (AUTO) 4.5 K/uL (1.8-8.9); NEUTROPHILS % (AUTO) 63.9 % (43.0-81.0); PLATELET COUNT (AUTO) 210 K/uL (150-450); RED BLOOD CELL COUNT(AUTO) 3.75 MIL/uL (4.0-5.2); RED CELL DISTRIBUTION WIDTH 14.7 % (11.5-15.0)
[2023-04-16 07:50] LABS: CALCIUM, SERUM 9.1 mg/dL (8.5-10.1); CREATININE 1.3 mg/dL (0.6-1.3); POTASSIUM 4.1 mmol/L (3.5-5.1)
[2023-04-16] MEDS: IV D5/ 0.9% NACL 1,000 ML IV PRN (08:13)
[2023-04-16] MEDS: RIVASTIGMINE TARTRATE 1.5 MG CAPSULE PO SCH ×2 (08:18→18:23)
[2023-04-16] MEDS: ASPIRIN 81 MG TAB.CHEW PO SCH (08:18)
[2023-04-16] MEDS: MULTIVIT W/MINERALS 1 TAB TABLET PO SCH (08:19)
[2023-04-16] MEDS: CLOPIDOGREL BISULFATE 75 MG TABLET PO SCH (08:19)
[2023-04-16] MEDS: ASCORBIC ACID 500 MG TABLET PO SCH (08:19)
[2023-04-16] MEDS: MEMANTINE HCL 5 MG TABLET PO SCH (08:19)
[2023-04-16] MEDS: FOLIC ACID 1 MG TABLET PO SCH (08:19)
[2023-04-16] MEDS: PANTOPRAZOLE 40 MG TABLET.DR PO SCH (08:19)
[2023-04-16] MEDS: VANCOMYCIN HCL 0.75 GM in IV D5W 250 ML IV SCH (20:37)
[2023-04-16] MEDS: ATORVASTATIN 40 MG TABLET PO SCH (22:52)
[2023-04-17] VITALS (10 sets, daily range): BP systolic 147–167; BP diastolic 86–89; TEMP 97.7–99; O2SAT 96–99
[2023-04-17] MEDS: ALBUTEROL FS 2.5 MG/3 ML VIAL.NEB IH SCH ×3 (02:09→12:42)
[2023-04-17] MEDS: IV D5/ 0.9% NACL 1,000 ML IV PRN (04:36)
[2023-04-17] MEDS: BLOOD SUGAR DIAGNOSTIC 1 EACH STRIP IN SCH ×2 (06:26→11:52)
[2023-04-17 07:53] LABS: BASOPHILS % (AUTO) 0.4 % (0.0-2.0); EOSINOPHILS # (AUTO) 0.3 K/uL (0.0-0.7); EOSINOPHILS % (AUTO) 6.3 % (0.0-6.0); HEMATOCRIT 31 % (33-45); LYMPHOCYTES # (AUTO) 0.9 K/uL (0.8-4.8); LYMPHOCYTES % (AUTO) 19.6 % (20.0-44.0); MEAN CORPUSCULAR HEMOGLOBIN 30 PG (26.0-33.0); MEAN CORPUSCULAR HGB CONC 32 g/dl (31.0-36.0); MEAN CORPUSCULAR VOLUME 94 fL (82-100); MONOCYTES # (AUTO) 0.5 K/uL (0.1-1.30); MONOCYTES % (AUTO) 11.5 % (2.0-12.0); NEUTROPHILS # (AUTO) 2.9 K/uL (1.8-8.9); NEUTROPHILS % (AUTO) 62.2 % (43.0-81.0); PLATELET COUNT (AUTO) 185 K/uL (150-450); RED BLOOD CELL COUNT(AUTO) 3.33 MIL/uL (4.0-5.2); RED CELL DISTRIBUTION WIDTH 14.9 % (11.5-15.0); WHITE BLOOD COUNT (AUTO) 4.6 K/uL (4.3-11.0)
[2023-04-17] MEDS: MULTIVIT W/MINERALS 1 TAB TABLET PO SCH (08:46)
[2023-04-17] MEDS: FOLIC ACID 1 MG TABLET PO SCH (08:46)
[2023-04-17] MEDS: ASPIRIN 81 MG TAB.CHEW PO SCH (08:46)
[2023-04-17] MEDS: RIVASTIGMINE TARTRATE 1.5 MG CAPSULE PO SCH (08:46)
[2023-04-17] MEDS: PANTOPRAZOLE 40 MG TABLET.DR PO SCH (08:46)
[2023-04-17] MEDS: ASCORBIC ACID 500 MG TABLET PO SCH (08:46)
[2023-04-17] MEDS: MEMANTINE HCL 5 MG TABLET PO SCH (08:47)
[2023-04-17] MEDS: CLOPIDOGREL BISULFATE 75 MG TABLET PO SCH (08:47)
[2023-04-17 08:49] LABS: CALCIUM, SERUM 8.5 mg/dL (8.5-10.1); CARBON DIOXIDE 21 mmol/L (21-32); CHLORIDE 108 mmol/L (98-107); CREATININE 1.4 mg/dL (0.6-1.3); GLUCOSE 102 mg/dL (74-106); POTASSIUM 3.6 mmol/L (3.5-5.1); SODIUM SERUM 141 mmol/L (136-145); UREA NITROGEN, BLOOD 10 mg/dL (7-18)
[2023-04-17] MEDS ORDERED: AMOX-430 PO (10:27)
[2023-04-17] MEDS ORDERED: ASPI-1169 PO (10:27)
[2023-04-17 21:06] LABS: VITAMIN B1 THIAMINE,WB 117.2 nmol/L (66.5-200.0)
== END 2023-04-17 14:50 | DRG 64 ==
LOC: ER 08:37 → TELE 12:37
PROVIDERS: ADMIT Nurse Practitioner Acute Care; ATTEND Nurse Practitioner Acute Care
DX: I63.9 Cerebral infarction, unspecified (principal); G93.41 Metabolic encephalopathy; J15.9 Unspecified bacterial pneumonia; N17.0 Acute kidney failure with tubular necrosis; D68.59 Other primary thrombophilia; I13.0 Hypertensive heart and chronic kidney disease with heart failure and stage 1 through stage 4 chronic kidney disease, or unspecified chronic kidney disease; N18.4 Chronic kidney disease, stage 4 (severe); R78.81 Bacteremia; R29.713 NIHSS score 13; F03.90 Unspecified dementia, unspecified severity, without behavioral disturbance, psychotic disturbance, mood disturbance, and anxiety; E11.22 Type 2 diabetes mellitus with diabetic chronic kidney disease; J44.9 Chronic obstructive pulmonary disease, unspecified; E78.5 Hyperlipidemia, unspecified; I50.9 Heart failure, unspecified; Z79.51 Long term (current) use of inhaled steroids; Z79.84 Long term (current) use of oral hypoglycemic drugs; Z79.02 Long term (current) use of antithrombotics/antiplatelets; Z79.4 Long term (current) use of insulin; Z79.899 Other long term (current) drug therapy; M89.8X9 Other specified disorders of bone, unspecified site; Z74.09 Other reduced mobility; E04.1 Nontoxic single thyroid nodule; I69.320 Aphasia following cerebral infarction
CPT/HCPCS: 36415; 70450-TC; 70496-TC; 70498-TC; 70551-TC; 71045-TC; 80048-TC; 80061-TC; 80076-TC; 80202-TC; 81001; 82140-TC; 82607-TC; 82962-TC; 83605-TC; 83921; 84425; 84439-TC; 84443-TC; 84484-TC; 85025-TC; 85610-TC; 85730-TC; 87040-TC; 92507-TC; 92521; 92526; 92611-TC; 93307-TC; 94799-TC; 97530-TC; A4223; G0378; J0360; J1200; J3370; J3490; J7042; J7050; J7060; Q9967